=== PATIENT | female | born 1995 | race Caucasian/White ===

== ENCOUNTER 2022-07-26 13:27 | Emergency (ER) | payer SELFPAY ==
[~2022-07-26] VITALS: Ht 157.4 cm; Wt 126.0 kg
[~2022-07-26 13:27] MED LIST: NITR-65 PO
--- NOTE | 2022-07-26 13:40 | ED Abdominal Pain ---
General Chief Complaint: Abdominal/GI Problems Stated Complaint: ABD PAIN History of Present Illness Date Seen by Provider: Jul 26, 2022 Time Seen by Provider: 13:40 Initial Comments 26-year-old female presents with abdominal pain. Patient reports that started about 4 hours ago. Its in the upper abdomen. She has had some nausea vomiting and diarrhea with that she feels little bit febrile and has some chills. She has no known sick contacts. She reports she took some ibuprofen and Pepto with minimal relief. Patient reports that she had her gallbladder out along with tubal ligation. She denies any marijuana or alcohol use Allergies and Home Medications Allergies Coded Allergies: Latex, Natural Rubber (Verified Allergy, Unknown, 07/26/22) sulfamethoxazole (Verified Allergy, Unknown, 07/26/22) trimethoprim (Verified Allergy, Unknown, 07/26/22) Patient Home Medication List Home Medication List Reviewed: Yes Dicyclomine HCl (Dicyclomine HCl) 20 Mg Tablet, 20 MG PO QID Prescribed by: ALVERTO GIBBONS on 07/26/22 1544 Nitrofurantoin Monohyd/M-Cryst (Macrobid 100 mg Capsule) 100 Mg Capsule, 1 TAB PO BID, (Reported) Entered as Reported by: SAMINA VARGAS on 03/07/15 0731 Ondansetron (Ondansetron Odt) 4 Mg Tab.rapdis, 4 MG PO Q6H PRN for NAUSEA/VOMITING Prescribed by: ALVERTO GIBBONS on 07/26/22 1544 Review of Systems Review of Systems Constitutional: chills Respiratory: Denies Cough Cardiovascular: Denies Chest Pain Gastrointestinal: Abdominal Pain, Diarrhea, Nausea, Vomiting Musculoskeletal: no symptoms reported Skin: no symptoms reported Psychiatric/Neurological: No Symptoms Reported Endocrine: No Symptoms Reported Past Kethdhr-Gbmzau-Ekplvt Hx Past Medical History Gallbladder, Tonsillectomy Pneumonia Reproductive Disorders: No Family Medical History No Pertinent Family Hx Physical Exam Vital Signs Vital Signs - First Documented 07/26/22 13:38 Temp 36.9 Pulse 80 Resp 24 B/P (MAP) 145/92 (109) Pulse Ox 100 O2 Delivery Room Air Capillary Refill : Height/Weight/BMI Height: 5'2" Weight: 240lbs. oz. 108.157652ab; BMI Method:Stated General Appearance: obese Respiratory: lungs clear, normal breath sounds Cardiovascular: normal peripheral pulses, regular rate, rhythm Gastrointestinal: soft; No guarding, No rebound; tenderness (Upper abdomen) Neurologic/Psychiatric: alert, normal mood/affect, oriented x 3 Skin: normal color, warm/dry Progress/Results/Core Measures Results/Orders Lab Results Laboratory Tests Test 07/26/22 13:45 07/26/22 14:04 Range/Units White Blood Count 8.8 4.3-11.0 10^3/uL Red Blood Count 4.62 3.80-5.11 10^6/uL Hemoglobin 10.6 L 11.5-16.0 g/dL Hematocrit 33 L 35-52 % Mean Corpuscular Volume 72 L 80-99 fL Mean Corpuscular Hemoglobin 23 L 25-34 pg Mean Corpuscular Hemoglobin Concent 32 32-36 g/dL Red Cell Distribution Width 16.2 H 10.0-14.5 % Platelet Count 351 130-400 10^3/uL Mean Platelet Volume 8.4 L 9.0-12.2 fL Immature Granulocyte % (Auto) 0 % Neutrophils (%) (Auto) 84 H 42-75 % Lymphocytes (%) (Auto) 14 12-44 % Monocytes (%) (Auto) 2 0-12 % Eosinophils (%) (Auto) 1 0-10 % Basophils (%) (Auto) 0 0-10 % Neutrophils # (Auto) 7.4 1.8-7.8 10^3/uL Lymphocytes # (Auto) 1.2 1.0-4.0 10^3/uL Monocytes # (Auto) 0.2 0.0-1.0 10^3/uL Eosinophils # (Auto) 0.0 0.0-0.3 10^3/uL Basophils # (Auto) 0.0 0.0-0.1 10^3/uL Immature Granulocyte # (Auto) 0.0 0.0-0.1 10^3/uL Sodium Level 138 135-145 MMOL/L Potassium Level 4.0 3.6-5.0 MMOL/L Chloride Level 105 98-107 MMOL/L Carbon Dioxide Level 24 21-32 MMOL/L Anion Gap 9 5-14 MMOL/L Blood Urea Nitrogen 9 7-18 MG/DL Creatinine 0.82 0.60-1.30 MG/DL Estimat Glomerular Filtration Rate 100 BUN/Creatinine Ratio 11 Glucose Level 114 H 70-105 MG/DL Calcium Level 9.1 8.5-10.1 MG/DL Corrected Calcium 8.9 8.5-10.1 MG/DL Total Bilirubin 0.3 0.1-1.0 MG/DL Aspartate Amino Transf (AST/SGOT) 20 5-34 U/L Alanine Aminotransferase (ALT/SGPT) 22 0-55 U/L Alkaline Phosphatase 103 40-136 U/L C-Reactive Protein High Sensitivity 1.00 H 0.00-0.50 MG/DL Total Protein 7.9 6.4-8.2 GM/DL Albumin 4.2 3.2-4.5 GM/DL Lipase 12 8-78 U/L Urine Color YELLOW Urine Clarity CLEAR Urine pH 8.0 5-9 Urine Specific Adams 1.015 L 1.016-1.022 Urine Protein TRACE H NEGATIVE Urine Glucose (UA) NEGATIVE NEGATIVE Urine Ketones NEGATIVE NEGATIVE Urine Nitrite NEGATIVE NEGATIVE Urine Bilirubin NEGATIVE NEGATIVE Urine Urobilinogen 0.2 < = 1.0 MG/DL Urine Leukocyte Esterase TRACE H NEGATIVE Urine RBC (Auto) NEGATIVE NEGATIVE Urine RBC NONE /HPF Urine WBC 0-2 /HPF Urine Squamous Epithelial Cells >50 H /HPF Urine Crystals N /LPF Urine Bacteria N /HPF Urine Casts NONE /LPF Urine Mucus NEGATIVE /LPF Urine Culture Indicated NO My Orders Orders - GIBBONS,ALVERTO L DO Cbc With Automated Diff (07/26/22 13:43) Comprehensive Metabolic Panel (07/26/22 13:43) Hs C Reactive Protein (07/26/22 13:43) Lipase (07/26/22 13:43) Ua Culture If Indicated (07/26/22 13:43) Ondansetron Injection (Zofran Injectio (07/26/22 13:45) Ns Iv 1000 Ml (Sodium Chloride 0.9%) (07/26/22 13:43) Hyoscyamine Sl Tablet (Levsin Sl Tablet) (07/26/22 13:45) Ketorolac Injection (Toradol Injection) (07/26/22 14:18) Ct Abdomen/Pelvis W (07/26/22 14:33) Lidocaine 2% Viscous 15 Ml (Xylocaine Vi (07/26/22 14:45) Antacid Suspension (Mylanta Suspension (07/26/22 14:45) Iohexol Injection (Omnipaque 350 Mg/Ml 1 (07/26/22 14:45) Ns (Ivpb) (Sodium Chloride 0.9% Ivpb Bag (07/26/22 14:45) Metoclopramide Injection (Reglan Injecti (07/26/22 15:20) Diphenhydramine Injection (Benadryl Inje (07/26/22 15:20) Medications Given in ED Current Medications Medications Dose Ordered Sig/Jessica Route Start Time Stop Time Status Last Admin Dose Admin Al Hydrox/Mg Hydrox/Simethicone 30 ml ONCE ONCE PO 07/26/22 14:45 07/26/22 14:46 DC 07/26/22 14:43 30 ML Hyoscyamine Sulfate 0.125 mg ONCE ONCE SL 07/26/22 13:45 07/26/22 13:46 DC 07/26/22 13:53 0.125 MG Iohexol 100 ml ONCE ONCE IV 07/26/22 14:45 07/26/22 14:46 DC 07/26/22 15:13 100 ML Lidocaine HCl 15 ml ONCE ONCE PO 07/26/22 14:45 07/26/22 14:46 DC 07/26/22 14:43 15 ML Ondansetron HCl 4 mg ONCE ONCE IVP 07/26/22 13:45 07/26/22 13:46 DC 07/26/22 13:53 4 MG Sodium Chloride 100 ml ONCE ONCE IV 07/26/22 14:45 07/26/22 14:46 DC 07/26/22 15:13 80 ML Vital Signs/I&O 07/26/22 13:38 Temp 36.9 Pulse 80 Resp 24 B/P (MAP) 145/92 (109) Pulse Ox 100 O2 Delivery Room Air Progress Progress Note : Progress Note Patient's labs were reviewed and showed no significant findings. Patient continually complained of pain despite treatment so a CT was performed. CT was negative. Patient's pain and nausea subsided following Benadryl and Reglan. Patient likely has a viral gastroenteritis or other gastroenteritis. I will prescribe her Bentyl and Zofran. Patient was resting comfortably and discharged home. Departure Impression Primary Impression: Gastroenteritis Disposition: 01 HOME, SELF-CARE Condition: Stable Departure-Patient Inst. Referrals: NO,LOCAL PHYSICIAN (PCP/Family) Primary Care Physician Patient Instructions: Viral Gastroenteritis in Adults Add. Discharge Instructions: clear liquid diet, advance as tolerated. All discharge instructions reviewed with patient and/or family. Voiced understanding. Scripts Dicyclomine HCl (Dicyclomine HCl) 20 Mg Tablet 20 MG PO QID for Cramps, #20 TAB Prov: ALVERTO GIBBONS DO 07/26/22 Ondansetron (Ondansetron Odt) 4 Mg Tab.rapdis 4 MG PO Q6H PRN for NAUSEA/VOMITING, #20 TAB 0 Refills Prov: ALVERTO GIBBONS DO 07/26/22 ALVERTO GIBBONS DO Jul 26, 2022 13:40
[2022-07-26] MEDS ORDERED: NS IV 1000 ML 1,000 ML IV STA (13:43)
[2022-07-26] MEDS ORDERED: HYOSCYAMINE 0.125 MG (LEVSIN) TAB SL ONE (13:45)
[2022-07-26] MEDS ORDERED: ONDANSETRON 4 MG/2 ML (SDV) Z0FRAN IVP ONE (13:45)
[2022-07-26 13:55] LABS: BASOPHILS % (AUTO) 0 % (0-10); EOSINOPHILS % (AUTO) 1 % (0-10); HEMATOCRIT 33 % (35-52); HEMOGLOBIN 10.6 g/dL (11.5-16.0); LYMPHOCYTES # (AUTO) 1.2 10^3/uL (1.0-4.0); LYMPHOCYTES % (AUTO) 14 % (12-44); MEAN CORPUSCULAR HEMOGLOBIN 23 pg (25-34); MEAN CORPUSCULAR HGB CONC 32 g/dL (32-36); MEAN CORPUSCULAR VOLUME 72 fL (80-99); MEAN PLATELET VOLUME 8.4 fL (9.0-12.2); MONOCYTES # (AUTO) 0.2 10^3/uL (0.0-1.0); MONOCYTES % (AUTO) 2 % (0-12); NEUTROPHILS # (AUTO) 7.4 10^3/uL (1.8-7.8); NEUTROPHILS % (AUTO) 84 % (42-75); PLATELET COUNT 351 10^3/uL (130-400); WHITE BLOOD COUNT 8.8 10^3/uL (4.3-11.0)
[2022-07-26 14:06] LABS: ALBUMIN 4.2 GM/DL (3.2-4.5)
[2022-07-26 14:08] LABS: CALCIUM 9.1 MG/DL (8.5-10.1)
[2022-07-26 14:09] LABS: TOTAL PROTEIN 7.9 GM/DL (6.4-8.2)
[2022-07-26 14:11] LABS: BILIRUBIN,TOTAL 0.3 MG/DL (0.1-1.0)
[2022-07-26 14:12] LABS: CREATININE SERUM 0.82 MG/DL (0.60-1.30)
[2022-07-26 14:12] LABS: BILIRUBIN,URINE NEGATIVE (NEGATIVE); CLARITY,URINE CLEAR; COLOR,URINE YELLOW; GLUCOSE, URINE (UA) NEGATIVE (NEGATIVE); KETONES,URINE NEGATIVE (NEGATIVE); LEUKOCYTE ESTERASE ,URINE TRACE (NEGATIVE); NITRITE,URINE NEGATIVE (NEGATIVE); PROTEIN,URINE TRACE (NEGATIVE)
[2022-07-26] MEDS ORDERED: KETOROLAC 30 MG/ML VIAL IVP STA (14:18)
[2022-07-26 14:21] LABS: BACTERIA,URINE N /HPF; SQUAMOUS EPITHELIAL CELL,UR >50 /HPF; WBC,URINE 0-2 /HPF
[2022-07-26] MEDS ORDERED: IOHEXOL 350 MG/ML 100 ML (OMNIPAQUE 350) VIAL IV ONE (14:45)
[2022-07-26] MEDS ORDERED: ANTACID SUSP 30 ML UDC (MYLANTA) PO ONE (14:45)
[2022-07-26] MEDS ORDERED: NS 100 ML (IVPB) BAG IV ONE (14:45)
[2022-07-26] MEDS ORDERED: LIDOCAINE 2% VISCOUS 15 ML UDC PO ONE (14:45)
[2022-07-26] MEDS ORDERED: diphenhydrAMINE 50 MG/ML INJ (BENADRYL) IV STA (15:20)
[2022-07-26] MEDS ORDERED: METOCLOPRAMIDE INJ 10 MG/2 ML (REGLAN) IVP STA (15:20)
--- NOTE | 2022-07-26 15:33 | Diagnostic Imaging Report ---
PROCEDURE: CT abdomen and pelvis with contrast. TECHNIQUE: Multiple contiguous axial images were obtained through the abdomen and pelvis after administration of intravenous contrast. Auto Exposure Controls were utilized during the CT exam to meet ALARA standards for radiation dose reduction. All CT scans use one or more of the following dose optimizing techniques: automated exposure control, MA and/or KvP adjustment based on patient size and exam type or iterative reconstruction. INDICATION: Abdominal pain, vomiting. COMPARISON: No priors. A small amount of colonic intraluminal hyperdensity likely the ingested bismuth from Pepto-Bismol taken. No suspicious radiopacity. There is no small or large bowel obstruction. The stomach was not pathologically distended. No perigastric, perienteric or pericolonic edema. The colon itself is nondistended limiting its evaluation. There is a normal appendix. There is no diverticulitis. There is a clip in the right adnexa, a second surgical clip is deep to the left abdominal wall and may have migrated from the left adnexa. No adnexal lesion. Uterus and urinary bladder normal. Liver, spleen, adrenals and pancreas negative. The gallbladder surgically absent. The kidneys unobstructed. There is no abnormal fecal loading. IMPRESSION: 1. No bowel, biliary or urinary tract obstruction. No focal inflammatory process, abscess, hematoma or ascites. 2. Absent gallbladder, clip in the right adnexa of the fallopian tube. The left-sided clip is probably migrated is now found in the left hemiabdomen deep to the abdominal wall. 3. No acute appearing abnormality identified. Dictated by: Dictated on workstation # [id number]
[2022-07-26] MEDS ORDERED: DICY20TA PO (15:44)
[2022-07-26] MEDS ORDERED: ONDA4TAB11 PO (15:44)
[2022-07-26 15:57] VITALS: BP 134/88
== END 2022-07-26 15:57 | disposition home or self-care (01) ==
LOC: EDUNIT# 13:27 → ER 13:29
DX: K52.9 Noninfective gastroenteritis and colitis, unspecified (principal); E66.9 Obesity, unspecified; Z68.43 Body mass index [BMI] 50.0-59.9, adult; Z91.040 Latex allergy status
CPT/HCPCS: 36415; 74177; 80053; 81000; 83690; 85025; 86141